=== PATIENT | female | born 1960 | race Caucasian/White ===

== ENCOUNTER 2024-11-16 09:44 | Inpatient (IN) | payer MEDICARE, OTHER ==
[~2024-11-16] VITALS: Ht 172.7 cm; Wt 65.8 kg
[~2024-11-16 09:44] MED LIST: PHEN-895 PO
[2024-11-16 10:50] LABS: PLATELET COUNT (AUTO) 197 K/uL (150-450); RED BLOOD CELL COUNT(AUTO) 4.83 MIL/uL (4.0-5.2); RED CELL DISTRIBUTION WIDTH 14.0 % (11.5-15.0); WHITE BLOOD COUNT (AUTO) 9.0 K/uL (4.3-11.0)
[2024-11-16 10:56] LABS: APPEARANCE,URINE CLEAR (CLEAR); BLOOD, URINE Small Ery/uL (NEGATIVE); LEUKOCYTE ESTERASE ,URINE Large (NEGATIVE); UGLUCOSE 100 MG/DL mg/dL (NEGATIVE)
[2024-11-16 10:57] LABS: CALCIUM, SERUM 9.2 mg/dL (8.5-10.1); CREATININE 1.5 mg/dL (0.6-1.3); SODIUM SERUM 143 mmol/L (136-145); UREA NITROGEN, BLOOD 17 mg/dL (7-18)
[2024-11-16 10:58] LABS: NITRITE, URINE POSITIVE (NEGATIVE)
[2024-11-16 11:02] LABS: ADD URINE CULTURE YES; SQUAMOUS EPITHELIAL CELL,UR Moderate /HPF (None Seen)
[2024-11-16 11:03] LABS: ALCOHOL, BLOOD < 3 mg/dL (0-10); ASPARTATE AMINOTRANSFERASE 13 U/L (15-37); TOTAL PROTEIN, SERUM 7.3 g/dL (6.4-8.2)
[2024-11-16 11:09] LABS: AMPHETAMINE, URINE NEGATIVE (NEGATIVE); BARBITURATE, URINE NEGATIVE (NEGATIVE); BENZODIAZEPINE, URINE NEGATIVE (NEGATIVE); CANNABINOID, URINE NEGATIVE (NEGATIVE); COCCAINE, URINE NEGATIVE (NEGATIVE); OPIATE, URINE NEGATIVE (NEGATIVE)
[2024-11-16] MEDS: CEPHALEXIN MONOHYDRATE 500 MG CAPSULE PO ONE (11:37)
[2024-11-16] MEDS ORDERED: [UNRECOGNIZED DRUG - CODE] PO (11:47)
[2024-11-16] MEDS ORDERED: ACET600C PO (11:47)
[2024-11-16] MEDS ORDERED: ACET325T53 PO (11:47)
[2024-11-16] MEDS ORDERED: FAMO40TA7 PO (11:47)
[2024-11-16] MEDS ORDERED: NA P133E RC (11:47)
[2024-11-16] MEDS ORDERED: ACET-73 PO (11:47)
[2024-11-16] MEDS ORDERED: IBUP-1955 PO (11:47)
[2024-11-16] MEDS ORDERED: FERR325T24 PO (11:47)
[2024-11-16] MEDS ORDERED: DOCU100C36 PO (11:47)
[2024-11-16] MEDS ORDERED: APRE30TA2 PO (11:47)
[2024-11-16] MEDS ORDERED: METH1TAB69 PO (11:47)
[2024-11-16] MEDS ORDERED: ESTR42.53 VG (11:47)
[2024-11-16] MEDS ORDERED: VITA1TAB56 PO (11:47)
[2024-11-16] MEDS ORDERED: CHOL500062 PO (11:47)
[2024-11-16] MEDS ORDERED: TRAZ-182 PO (11:47)
[2024-11-16] MEDS ORDERED: BISA10SU11 RC (11:47)
[2024-11-16] MEDS ORDERED: ZINC56.713 TP (11:47)
[2024-11-16] MEDS ORDERED: SENN-261 PO (11:47)
[2024-11-16] MEDS ORDERED: CRAN300T PO (11:47)
[2024-11-16] MEDS ORDERED: POLY17PO4 PO (11:47)
[2024-11-16] MEDS ORDERED: MAGN400O6 PO (11:47)
[2024-11-16] MEDS ORDERED: ESTR42.5 VG (11:47)
[2024-11-16] MEDS ORDERED: ASCO500T10 PO (11:47)
[2024-11-16] MEDS ORDERED: LACTAID 1 TAB TABLET PO SCH (13:00)
[2024-11-16] MEDS ORDERED: BISACODYL SUPP (10 MG) 10 MG/SUPP.RECT SUPP.RECT RC PRN (13:00)
[2024-11-16] MEDS ORDERED: MAGNESIUM HYDROXIDE 30 ML UDC PO PRN ×2 (13:00→13:30)
[2024-11-16] MEDS ORDERED: IBUPROFEN 600 MG TABLET PO PRN (13:00)
[2024-11-16] MEDS ORDERED: NA PHOS,M-B/NA PHOS,DI-BA 1 EA ENEMA RC PRN (13:00)
[2024-11-16] MEDS ORDERED: POLYETHYLENE GLYCOL 3350 17 GM POWD.PACK PO PRN (13:00)
[2024-11-16] MEDS ORDERED: ACETAMINOPHEN 325 MG TABLET PO PRN (13:30)
[2024-11-16] MEDS ORDERED: ZOLPIDEM TARTRATE 5 MG TABLET PO PRN (13:30)
[2024-11-16] MEDS: BLOOD SUGAR DIAGNOSTIC 1 EACH STRIP IN ONE (13:53)
[2024-11-16 16:14] VITALS: BP 128/80; TEMP 98; O2SAT 98
[2024-11-16] MEDS ORDERED: ACETYLCYSTEINE 600 MG PO SCH (17:00)
[2024-11-16] MEDS ORDERED: Medication Not On Formulary EA (Apremilast (Otezla) 30 MG) PO SCH (17:00)
[2024-11-16] MEDS: buPROPion SR 100 MG TABLET.ER PO SCH (17:48)
[2024-11-16] MEDS: QUETIAPINE FUMARATE 25 MG TABLET PO PRN (17:52)
[2024-11-16] MEDS: PHENAZOPYRIDINE HCL 200 MG TABLET PO PRN (18:52)
[2024-11-16 20:18] VITALS: BP 110/74; TEMP 98.1; O2SAT 98
[2024-11-16] MEDS ORDERED: Medication Not On Formulary EA (Methenamine Hippurate 1 GM) PO SCH (21:00)
[2024-11-16] MEDS: SENNOSIDES 8.6 MG TABLET PO SCH (21:34)
[2024-11-16] MEDS: DIVALPROEX SODIUM 125 MG TABLET.DR PO SCH (21:34)
[2024-11-17 07:47] LABS: LDL 61 mg/dL (0-99)
[2024-11-17 07:50] LABS: ASPARTATE AMINOTRANSFERASE 9.0 U/L (15-37); CALCIUM, SERUM 9.1 mg/dL (8.5-10.1); CREATININE 1.2 mg/dL (0.6-1.3); SODIUM SERUM 146.0 mmol/L (136-145); TOTAL PROTEIN, SERUM 6.8 g/dL (6.4-8.2); UREA NITROGEN, BLOOD 17.0 mg/dL (7-18)
[2024-11-17 08:00] VITALS: BP 118/81; TEMP 98.7; O2SAT 98
[2024-11-17] MEDS: CHOLECALCIFEROL 1,000 UNIT TABLET (VIT D3) PO SCH (08:42)
[2024-11-17] MEDS: FERROUS SULFATE (325 MG) 325 MG/TAB TABLET PO SCH (08:42)
[2024-11-17] MEDS: DOCUSATE SODIUM 100 MG CAPSULE PO SCH (08:42)
[2024-11-17] MEDS: POTASSIUM CHLORIDE 20 MEQ TAB.PRT.SR PO ONE (10:47)
[2024-11-17 16:00] VITALS: BP 115/62; TEMP 97.7; O2SAT 97
[2024-11-17 20:21] VITALS: BP 126/70; TEMP 97.9; O2SAT 98
[2024-11-17 20:32] LABS: CREATININE, URINE 39.7 MG/DL (30.0-125.0); URINE SODIUM, RANDOM 35.0 mmol/l (40-220); URINE TOTAL PROTEIN 75.8 mg/dL (0-11.9)
[2024-11-18 07:40] LABS: PLATELET COUNT (AUTO) 172 K/uL (150-450); RED BLOOD CELL COUNT(AUTO) 4.70 MIL/uL (4.0-5.2); RED CELL DISTRIBUTION WIDTH 13.7 % (11.5-15.0); WHITE BLOOD COUNT (AUTO) 6.4 K/uL (4.3-11.0)
[2024-11-18 08:00] VITALS: BP 105/67; TEMP 97.7; O2SAT 98
[2024-11-18] MEDS: CEPHALEXIN MONOHYDRATE 500 MG CAPSULE PO SCH (09:01)
[2024-11-18 09:19] LABS: PHOSPHORUS 3.3 mg/dL (2.5-4.9)
[2024-11-18] MEDS: DIVALPROEX SODIUM 125 MG TABLET.DR PO SCH (14:14)
[2024-11-18 16:00] VITALS: BP 128/73; TEMP 98.8; O2SAT 95
[2024-11-18 20:00] VITALS: BP 128/73; TEMP 99.5; O2SAT 98
[2024-11-19 08:00] VITALS: BP 108/72; TEMP 98; O2SAT 96
[2024-11-19] MEDS: BUPROPION XL 150 MG TAB.ER.24 PO SCH (08:58)
[2024-11-19] MEDS: NITROFURANTOIN/MONOHYDRATE MACROCRYSTALS 100 MG CAPSULE PO SCH (08:58)
[2024-11-19 16:06] VITALS: BP 135/68; TEMP 99.3; O2SAT 96
[2024-11-19 23:05] VITALS: BP 126/76; TEMP 98.6; O2SAT 96
[2024-11-20 08:00] VITALS: BP 116/77; TEMP 98; O2SAT 95
[2024-11-20 16:00] VITALS: BP 124/85; TEMP 98.1; O2SAT 98
[2024-11-20 20:31] VITALS: BP 117/73; TEMP 98.6; O2SAT 98
[2024-11-21 08:00] VITALS: BP 129/72; TEMP 98.1; O2SAT 95
[2024-11-21 15:53] VITALS: BP 135/84; TEMP 98.2; O2SAT 98
[2024-11-21 16:00] VITALS: BP 135/84; TEMP 98.2; O2SAT 98
[2024-11-21] MEDS: GUAIFENESIN/D-METHORPHAN HB 5 ML UDC PO PRN (17:57)
[2024-11-21 20:26] VITALS: BP 130/81; TEMP 98.2; O2SAT 98
[2024-11-22 08:00] VITALS: BP 119/82; TEMP 98.7; O2SAT 98
[2024-11-22 16:00] VITALS: BP 129/80; TEMP 98.6; O2SAT 96
[2024-11-22 19:44] LABS: ASPARTATE AMINOTRANSFERASE 24.0 U/L (15-37); CALCIUM, SERUM 8.7 mg/dL (8.5-10.1); CREATININE 1.1 mg/dL (0.6-1.3); PHOSPHORUS 3.2 mg/dL (2.5-4.9); TOTAL PROTEIN, SERUM 7.3 g/dL (6.4-8.2); UREA NITROGEN, BLOOD 21.0 mg/dL (7-18)
[2024-11-22 19:52] LABS: SODIUM SERUM 133.0 mmol/L (136-145)
[2024-11-22 19:59] LABS: PLATELET COUNT (AUTO) 142 K/uL (150-450); RED BLOOD CELL COUNT(AUTO) 4.57 MIL/uL (4.0-5.2); RED CELL DISTRIBUTION WIDTH 13.6 % (11.5-15.0); WHITE BLOOD COUNT (AUTO) 6.7 K/uL (4.3-11.0)
[2024-11-22 20:00] VITALS: BP 122/73; TEMP 98.6; O2SAT 100
[2024-11-22] MEDS: MAG HYDROX/AL HYDROX/SIMETH 30 ML UDC PO PRN (20:15)
[2024-11-22 20:29] VITALS: BP 122/73; TEMP 98.6; O2SAT 100
[2024-11-23 08:00] VITALS: BP 107/84; TEMP 97.8; O2SAT 99
[2024-11-23] MEDS: ACETAMINOPHEN 325 MG TABLET PO PRN (08:28)
[2024-11-23 08:29] LABS: CALCIUM, SERUM 9.6 mg/dL (8.5-10.1); CREATININE 1.1 mg/dL (0.6-1.3); UREA NITROGEN, BLOOD 22.0 mg/dL (7-18)
[2024-11-23 08:48] LABS: VALPROIC ACID 23.0 ug/mL (50-100)
[2024-11-23 08:53] LABS: SODIUM SERUM 141.0 mmol/L (136-145)
[2024-11-23] MEDS: DIVALPROEX SODIUM 125 MG TABLET.DR PO SCH (14:24)
[2024-11-23 16:09] VITALS: BP 121/81; TEMP 98.6; O2SAT 99
[2024-11-23 20:06] VITALS: BP 134/85; TEMP 98; O2SAT 100
[2024-11-24 08:00] VITALS: BP 135/81; TEMP 98.1; O2SAT 98
[2024-11-24 16:00] VITALS: BP 103/76; TEMP 98.7; O2SAT 97
[2024-11-24 20:11] VITALS: BP 131/83; TEMP 98.2; O2SAT 98
[2024-11-25 08:06] VITALS: BP 118/81; TEMP 97.8; O2SAT 98
[2024-11-25 08:10] LABS: CALCIUM, SERUM 9.2 mg/dL (8.5-10.1); CREATININE 1.1 mg/dL (0.6-1.3); SODIUM SERUM 138.0 mmol/L (136-145); UREA NITROGEN, BLOOD 21.0 mg/dL (7-18)
== END 2024-11-25 10:45 | DRG 885 ==
LOC: ER 09:46 → GPS 12:17 → MEDOV2 11-24 02:02 → GPS 11-24 02:07
PROVIDERS: ADMIT Psychiatry & Neurology Psychiatry; ATTEND Internal Medicine
DX: F31.30 Bipolar disorder, current episode depressed, mild or moderate severity, unspecified (principal); N17.9 Acute kidney failure, unspecified; E87.0 Hyperosmolality and hypernatremia; N39.0 Urinary tract infection, site not specified; Z16.12 Extended spectrum beta lactamase (ESBL) resistance; Z79.899 Other long term (current) drug therapy; K21.9 Gastro-esophageal reflux disease without esophagitis; F10.21 Alcohol dependence, in remission; Z87.891 Personal history of nicotine dependence; Z87.440 Personal history of urinary (tract) infections; Z91.411 Personal history of adult psychological abuse; Z91.410 Personal history of adult physical and sexual abuse; Z91.51 Personal history of suicidal behavior; F41.9 Anxiety disorder, unspecified; E87.6 Hypokalemia; B96.20 Unspecified Escherichia coli [E. coli] as the cause of diseases classified elsewhere; Z91.81 History of falling
CPT/HCPCS: 36415; 80048-TC; 80053-TC; 80061-TC; 80076-TC; 80164-TC; 81001; 82570-TC; 83735-TC; 84100-TC; 84300-TC; 85025-TC; 87086-TC; 87186-TC; G0480